=== PATIENT | male | born 1955 | race Caucasian/White ===

== ENCOUNTER 2016-04-07 16:17 | Emergency (ER) ==
[2016-04-07 16:32] VITALS: BP 164/091
--- NOTE | 2016-04-07 16:57 | PROVIDER DOCUMENTATION ---
HPI-Respiratory General - General Source: patient - History of Present Illness-Resp Quality of Pain: reports: tightness Severity in ED: reports: mild Onset/Duration: reports: gradual, other (2weeks) Timing: reports: still present, constant Context: reports: multiple patients with similar complaints Cough Quality/Degree: reports: moderate, productive cough Episode Frequency: occasional episodes Current Respiratory Medication Therapy: Initiated see nurses note Modifying Factors: worse with: coughing Associated Symptoms: reports: cough, fever/chills, flu-like symptoms, muscle/ bodyaches, shortness of breath, short of breath, wheezing. denies: earache, facial pain, nasal congestion, nasal drainage Similar Symptoms Previously?: No Recently seen or treated by another doctor?: No <Johnathan Chaney - Last Filed: 04/07/16 16:55> <Mendez Chilel - Last Filed: 04/07/16 17:47> - General Chief Complaint: Shortness of Breath Stated Complaint: SOB/B/P PROB Time Seen by Provider: 04/07/16 16:34 Allergies/Adverse Reactions: Patient Allergies Allergy/AdvReac Type Severity Reaction Status Date / Time No Known Allergies Allergy Verified 04/07/16 16:32 Home Medications: Lisinopril 20 mg PO DAILY 04/23/13 - History of Present Illness-Resp Nature of Presenting Problem: pt is a 61 y/o M that presents to the ER with cough/congestion, fever/chills, and bodyaches x 2 weeks worse today denies n/v/d, earache, or sore throat, also needs bp meds (Johnathan Chaney) Review of Systems - Adult - REVIEW OF SYSTEMS - ADULT Constitutional: reports: chills, fever Eyes: reports: no symptoms reported Ears, Nose, Mouth & Throat: denies: ear pain, sinus problem, throat pain, throat swelling Cardiovascular: denies: chest pain, palpitations, poor circulation, syncope Respiratory: reports: cough, excessive sputum production, shortness of breath, wheezing Gastrointestinal: denies: abdominal pain, diarrhea, nausea, vomiting Genitourinary: reports: no symptoms reported Musculoskeletal: reports: muscle aches. denies: back pain, joint pain Integumentary: reports: no symptoms reported Neurological: reports: no symptoms reported Psychiatric: reports: no symptoms reported Endocrine: reports: no symptoms reported Hematologic/Lymphatic: reports: no symptoms reported Allergic/Immunologic: reports: no symptoms reported All Other Systems: Reviewed and Negative <Johnathan Chaney - Last Filed: 04/07/16 16:55> Past History - Adult - PAST MEDICAL HISTORY-ADULT Review of Records: reports: Old Records Reviewed, Nursing Assessment Review, Medications Reviewed Cardiovascular: reports: HTN, hyperlipidemia Respiratory: reports: other (denies, but > 40 pack-yr hx tobacco, with rhonchi and mild wheeze on exam) - PRIOR SURGERIES/PROCEDURES Surgical/Procedure History: reports: hernia repair, back/neck - IMMUNIZATION STATUS Childhood Immunizations: See Nurse Assessment Flu Vaccine: See Nurse Assessment - FAMILY HISTORY Family History: CAD over 55 yo, HTN - SOCIAL HISTORY Smoking: cigarettes, less than 1 pack/day Living Situation: family <Johnathan Chaney - Last Filed: 04/07/16 16:55> Physical Exam-General - PHYSICAL EXAM-ADULT Initial Vital Signs Reviewed: Yes - CONSTITUTIONAL General Appearance: alert, no apparent distress - EYES Eyes: PERRL/EOMI, pink conjunctivae - HEAD, EARS, NOSE, MOUTH & THROAT HENMT: normocephalic/atraumatic, moist mucous membranes, TMs normal, pharynx normal, other (uvula swelling) - NECK Neck: full range of motion, normal inspection. negative: lymphadenopathy - RESPIRATORY Respiratory: no respiratory distress, no accessory muscle use, rhonchi, wheezing - CARDIOVASCULAR Cardiovascular: no edema, no gallop, tachycardia - GASTROINTESTINAL (ABDOMEN) Abdominal Exam: normal bowel sounds, non tender, soft, no organomegaly, no pulsatile mass - MUSCULOSKELETAL Extremity: normal range of motion, non-tender, normal inspection, no pedal edema , normal capillary refill - SKIN Integumentary: normal color, warm/dry - NEUROLOGIC Neurologic: grossly normal, no motor/sensory deficits - PSYCHIATRIC Psych/Mental Status: normal mood/affect, normal thought content, normal thought process, oriented x 3 <Johnathan Chaney - Last Filed: 04/07/16 16:55> Progress <Johnathan Chaney - Last Filed: 04/07/16 16:55> - XRAY 1 XRAY Study: Chest Impression: Abnormal XRAY Interpretation: questionable lll pneumonia <Mendez Chilel - Last Filed: 04/07/16 17:47> - PLAN OF CARE/RESULTS Progress/Plan/Lab Results: Vital Signs - 24 hr 04/07/16 16:26 Temperature 101.2 F H Pulse Rate 108 H Respiratory 24 Rate Blood Pressure 164/091 O2 Sat by Pulse 96 Oximetry Orders Category Date Time Status CHEST-2 VIEWS [RAD] Stat Exams 04/07/16 16:58 Taken CBC WITH DIFF [HEME] Stat Lab 04/07/16 17:[address] Stat Lab 04/07/16 16:59 Received Laboratory Tests 04/07/16 17:20 WBC 19.06 H RBC 4.91 Hgb 14.5 Hct 42.6 MCV 86.8 MCH 29.5 MCHC 34.0 RDW Std Deviation 12.9 Plt Count 327 MPV 9.7 Immature Gran % (Auto) 0.3 Neut % (Auto) 80.3 H Lymph % (Auto) 11.7 L [place] % (Auto) 7.1 Eos % (Auto) 0.4 Baso % (Auto) 0.2 Immature Gran # (Auto) 0.05 H Neut # (Auto) 15.32 H Lymph # (Auto) 2.23 [place] # (Auto) 1.35 H Eos # (Auto) 0.08 Baso # (Auto) 0.03 (Mendez Chilel) Departure <Johnathan Chaney - Last Filed: 04/07/16 16:55> - Departure Time of Disposition Order: 17:46 Certified Medical Emergency: Emergent <Mendez Chilel - Last Filed: 04/07/16 17:47> - Departure DIAGNOSIS: LLL pneumonia, COPD (chronic obstructive pulmonary disease) Disposition: HOME 01 Condition: Stable Additional Instructions: Tylenol and Motrin alternating for fever Push fluids Stop Lisinopril ED Follow Up Instructions: You have been treated by a care provider in the Emergency Department. These instructions are being provided to you so you can have an understanding of how to care for yourself upon discharge. Upon discharge from the Emergency Department, you are responsible for making arrangements for follow-up care by a physician of your choice. Take all prescribed medications as directed. Return to the Emergency Department immediately for any new or worsening symptoms. You may call the Physician Referral phone number at [phone] to obtain a list of Physicians who are taking new patients. Prescriptions: Guaifenesin/Codeine [Robitussin-AC] 10 ml PO Q4H PRN PRN #4 oz PRN Reason: Cough Amoxicillin 875 mg PO BID #20 tablet Losartan [Cozaar] 25 mg PO DAILY #30 tablet Referrals: None,PCP [Primary Care Provider] - Elena Richards MD [STAFF PHYSICIAN] - Call for Appoint. 1-2days Instructions: Chronic Obstructive Pulmonary Disease, [id number], Pneumonia, Adult, [id number] Attestation - Scribe Verification/Attestation Scribe:: Johnathan Chaney Acting as Scribe for:: Mendez Chilel Scribe documention review:: This chart was documented by a scribe and accurately reflects the service the provider performed and the decisions made by the provider. <Johnathan Chaney - Last Filed: 04/07/16 16:55> Physician Attestation - Physician Attestation I, the provider, attest to the following statement:: Mendez Chilel Physician documentation Attestation:: This documentation recorded by the scribe accurately reflects the service I personally performed and the decisions made by me. <Johnathan Chaney - Last Filed: 04/07/16 16:55>
[2016-04-07 17:21] LABS: MANUAL DIFF NEEDED? NO
[2016-04-07 17:24] LABS: BASO% 0.2 % (0.0-0.8); EOS# 0.08 X1000 (0.0-0.7); EOS% 0.4 % (0.0-10.0); HEMATOCRIT 42.6 % (42.0-52.0); HEMOGLOBIN 14.5 g/dL (14.0-18.0); IMM GRAN# 0.05 X1000 (0.0-0.04); IMM GRAN% 0.3 % (0.0-0.5); LYMPH# 2.23 X1000 (1.2-3.4); LYMPH% 11.7 % (20.5-51.1); MCH 29.5 PG (27-31); MCV 86.8 FL (81-99); MONO# 1.35 X1000 (0.11-0.59); MONO% 7.1 % (1.7-9.3); MPV 9.7 FL (7.4-10.4); NEUT% 80.3 % (42.2-75.2); PLT 327 X1000 (130-400); RBC 4.91 XMIL (4.7-6.1)
--- NOTE | 2016-04-08 06:54 | Diag Imaging Result Document ---
PROCEDURE NAME: CHEST-2 VIEWS - 04/07/2016 FRONTAL AND LATERAL CHEST, TWO VIEWS: COMPARISON: Compared to 09/05/2014. FINDINGS: The lungs are well expanded. The heart is not enlarged. The vessels are not distended. No pleural effusions. There are increased interstitial markings in the lingular segment of the left upper lobe. No other abnormality. IMPRESSION: Small infiltrate in the lingular segment of the left upper lobe.
== END 2016-04-07 18:03 | disposition home or self-care (01) ==
LOC: P.ED 16:17
DX: J18.9 Pneumonia, unspecified organism (principal); J44.9 Chronic obstructive pulmonary disease, unspecified; R05 Cough; R09.3 Abnormal sputum; R50.9 Fever, unspecified; M79.1 Myalgia; R06.02 Shortness of breath; R06.2 Wheezing; R09.81 Nasal congestion; R22.0 Localized swelling, mass and lump, head; R00.0 Tachycardia, unspecified; I10 Essential (primary) hypertension; E78.5 Hyperlipidemia, unspecified; F17.210 Nicotine dependence, cigarettes, uncomplicated; Z79.899 Other long term (current) drug therapy; Z82.49 Family history of ischemic heart disease and other diseases of the circulatory system
CPT/HCPCS: 71020; 85025; 87804; 99283